=== PATIENT | female | born 1955 | race Caucasian/White ===

== ENCOUNTER → 2018-01-28 | Outpatient (CLI) | payer MEDICARE, BC ==
--- NOTE | 2018-01-28 11:46 | KCIC ---
MR of the left knee Indication: Left knee pain, chronic. Comparison: None are available. Technique: The standard multiplanar sequences are obtained. FINDINGS: Artifact: No significant image degradation. Medial meniscus: Degenerative tear, with medial subluxation. Lateral meniscus: Intact. Anterior cruciate ligament: Poorly visualized on the sagittal images and on the coronal images, but appears intact and continuous on the axial images at its proximal aspect, but the distal insertion is difficult to define. No evidence of acute Pivot shift bone injury. Posterior cruciate ligament: Intact Medial collateral ligament: Intact. Lateral structures: * Iliotibial band: Intact. * Lateral collateral ligament: Intact. * Biceps femoris tendon: Intact * Popliteus tendon attachment: Intact Extensive mechanism: * Patellar tendon: Intact * Quadriceps tendon: Intact * Retinacular structures: Intact Fluid: Small joint effusion. No significant Tinoco's cyst. Intra-articular bodies: None visualized Joint compartments * patellofemoral joint: Severe primary osteoarthritis * medial compartment: Severe cartilage loss with subchondral bone exposure, irregularity and cysts. * lateral compartment: Moderate degenerative changes. Bones: Intraosseous cysts at the proximal tibia may be extending from the subchondral bone surface. No aggressive bone lesion. No acute fracture. Soft tissue: Unremarkable Impression: 1. Medial meniscal tear. 2. Primary osteoarthritis, particularly severe at the medial joint compartment. 3. Poorly visualized anterior cruciate ligament. Difficult to exclude a tear, particularly if there is clinical instability. Electronically signed by: Hai Cordova MD (01/28/2018 11:42 AM) [id number]
== END ==
LOC: KCIC MRI 10:20
PROVIDERS: ATTEND Orthopaedic Surgery
DX: S83.192A Other subluxation of left knee, initial encounter (principal); S83.242A Other tear of medial meniscus, current injury, left knee, initial encounter; M17.12 Unilateral primary osteoarthritis, left knee; M25.862 Other specified joint disorders, left knee; M25.462 Effusion, left knee; X58.XXXA Exposure to other specified factors, initial encounter; Y93.89 Activity, other specified; Y92.89 Other specified places as the place of occurrence of the external cause; Y99.8 Other external cause status
CPT/HCPCS: 73721